=== PATIENT | male | born 1935 | race Hispanic/Latino ===

== ENCOUNTER → 2017-11-26 | Day surgery (SDC) | payer OTHER ==
[2017-11-24 13:58] LABS: BASOPHILS % 0.5 % (0.0-1.0); EOSINOPHILS # (AUTO) 0.3 (0.0-0.4); EOSINOPHILS % 3.3 % (0.0-6.0); HEMATOCRIT 41.4 % (38.2-49.6); HEMOGLOBIN 14.3 g/dL (14.0-18.0); LYMPHOCYTES # (AUTO) 3.1 (1.0-3.2); LYMPHOCYTES % 38.9 % (18.0-39.1); MEAN CORPUSCULAR HEMOGLOBIN 29.8 pg (28-32); MEAN CORPUSCULAR HGB CONC 34.5 g/dL (31-35); MEAN CORPUSCULAR VOLUME 86.3 fL (81-99); MONOCYTES # (AUTO) 0.7 (0.2-0.8); MONOCYTES % 9.1 % (4.4-11.3); NEUTROPHILS # (AUTO) 3.8 (2.1-6.9); NEUTROPHILS % 47.9 % (38.7-80.0); PLATELET COUNT 216 x10e3/uL (140-360); RED CELL DISTRIBUTION WIDTH 13.1 % (11.7-14.4)
[~2017-11-26] MED LIST: ARICEPT5 MG PO; FENTANYL CITRATE/PF 100MCG/2 ML INJ ONE; FLOMAX0.4 MG PO; LIDOCAINE HCL 2% LOCAL INJ 5 ML SDV VIAL INJ ONE; LISINOPRIL-HCT1 EACH PO; OMEPRAZOLE40 MG PO; PROPOFOL IV EMULSION 10 MG/ML 50 ML VIAL ONE
[2017-11-26 10:15] VITALS: BP 135/76
== END | disposition home or self-care (01) ==
LOC: OR 06:25
PROVIDERS: ATTEND Internal Medicine Gastroenterology
DX: R13.10 Dysphagia, unspecified (principal); K29.70 Gastritis, unspecified, without bleeding; K44.9 Diaphragmatic hernia without obstruction or gangrene; K31.89 Other diseases of stomach and duodenum; Z71.3 Dietary counseling and surveillance; E66.9 Obesity, unspecified; I25.2 Old myocardial infarction; I10 Essential (primary) hypertension; F32.9 Major depressive disorder, single episode, unspecified; F03.90 Unspecified dementia, unspecified severity, without behavioral disturbance, psychotic disturbance, mood disturbance, and anxiety; Z01.810 Encounter for preprocedural cardiovascular examination; Z01.812 Encounter for preprocedural laboratory examination; Z68.31 Body mass index [BMI] 31.0-31.9, adult; Z87.891 Personal history of nicotine dependence
CPT/HCPCS: 36415; 43239; 43249; 85025; 93005; J2001; 43450

== ENCOUNTER → 2018-10-29 | Day surgery (SDC) | payer OTHER ==
[2018-10-28 12:15] LABS: BASOPHILS % 0.5 % (0.0-1.0); EOSINOPHILS # (AUTO) 0.2 (0.0-0.4); EOSINOPHILS % 2.7 % (0.0-6.0); HEMATOCRIT 41.8 % (38.2-49.6); HEMOGLOBIN 14.5 g/dL (14.0-18.0); LYMPHOCYTES # (AUTO) 2.6 (1.0-3.2); LYMPHOCYTES % 30.3 % (18.0-39.1); MEAN CORPUSCULAR HEMOGLOBIN 29.9 pg (28-32); MEAN CORPUSCULAR HGB CONC 34.7 g/dL (31-35); MEAN CORPUSCULAR VOLUME 86.2 fL (81-99); MONOCYTES # (AUTO) 0.7 (0.2-0.8); MONOCYTES % 7.7 % (4.4-11.3); NEUTROPHILS # (AUTO) 5.1 (2.1-6.9); NEUTROPHILS % 58.3 % (38.7-80.0); PLATELET COUNT 220 x10e3/uL (140-360); RED BLOOD COUNT 4.85 x10e6/uL (4.3-5.7); RED CELL DISTRIBUTION WIDTH 13.1 % (11.7-14.4)
[2018-10-28 12:37] LABS: ANION GAP 12.9 mmol/L (8-16); BLOOD UREA NITROGEN 13 mg/dL (7-26); BUN/CREATININE RATIO 16 (6-25); CALCIUM 9.2 mg/dL (8.4-10.2); CARBON DIOXIDE 28 mmol/L (22-29); CHLORIDE 100 mmol/L (98-107); CREATININE, SERUM 0.83 mg/dL (0.72-1.25); EST GLOMERULAR FILTRATION RATE > 60 ML/MIN (60-); GLUCOSE 131 mg/dL (74-118); POTASSIUM 3.9 mmol/L (3.5-5.1); SODIUM 137 mmol/L (136-145)
--- NOTE | 2018-10-28 13:30 | Diagnostic Imaging Report ---
Chest, 2 views, 10/28/2018. History: Preop, interstem malfunction. Comparison: None available. Findings: There is poor inspiration. The cardiomediastinal silhouette and pulmonary vasculature are within normal limits. There is no focal consolidation or pleural effusion. Linear opacities are present at the right lung base. There are no acute osseous or soft tissue abnormalities. Impression: Right basilar atelectasis. Signed by: Ralf Campbell on 10/28/2018 1:27 PM
[~2018-10-29] MED LIST changes: +BUPIVACAINE 0.5%/EPI 30 ML SDV INJ ONE; +CLINDAMYCIN 300MG 50 ML IV ONE; +DEXAMETHASONE SOD PHOS INJ 4 MG/ML VIAL ONE; -FENTANYL CITRATE/PF 100MCG/2 ML INJ ONE; +GENTAMICIN 80MG/NS 100 ML 200 ML IV ONE; +LIDOCAINE 2%/ EPINEPHRINE 20ML MDV ONE; +MELOXICAM7.5 MG PO; +METFORMIN HCL500 MG PO; +NORCO 5-325 TA1 EACH PO; +ONDANSETRON HCL INJ 2MG/ML 2ML 2 MG/ML VIAL ONE; +PANTOPRAZOLE SO40 MG PO; +PIPER-TAZ 3.375 GM 50 ML ONE; +PROPOFOL IV EMULSION 10 MG/ML 20 ML VIAL ONE; -PROPOFOL IV EMULSION 10 MG/ML 50 ML VIAL ONE; +SEVOFLURANE INHAL SOLN 250 ML PEN BTL ONE; +SIMVASTATIN20 MG PO
--- OUTSIDE RECORDS SUMMARY | 2018-10-29 07:02 | XMS REPORT | Clinical Summary ---
Author Author JASON [facility] Address Unknown Phone Unavailable Care Team Providers Care Organ Recovery Coordinator Name Role Phone Jakob Larkin MD PCP Unavailable Allergies No Known Allergies Medications End Date Status Medication Sig Dispensed Refills Start Date Active HYDROcodone-acetaminophen Take 1 tablet 0 (NORCO 10-325) 10-325 mg by mouth per tablet every 6 (six) hours as needed for Pain. Active LACTULOSE (GENERLAC ORAL) Take by mouth 0 daily. Active cetirizine (ZYRTEC) 10 MG Take 10 mg by 0 tablet mouth as needed for Allergies. Active tamsulosin (FLOMAX) 0.4 Take 0.4 mg 0 mg Cp24 24 hr capsule by mouth daily. Active Problems Problem Noted Date Urethral stricture unspecified Urethral stricture unspecified Renal cyst H/O: CVA (cerebrovascular accident) GERD (gastroesophageal reflux disease) Diverticulosis S/P cataract extraction S/P anal fissurectomy Previous back surgery H/O hand surgery H/O prostate cancer Social History Date Tobacco Use Types Packs/Day Years Used Former Smoker 1 20 Comments: quit smoking about 22 years ago Alcohol Use Drinks/Week oz/Week Comments No Sex Assigned at Date Recorded Not on file Industry Job Start Date Occupation Not on file Not on file Not on file Travel End Travel History Travel Start No recent travel history available. Last Filed Vital Signs Not on file Plan of Treatment Not on file Implants Device Identifier Shelf Expiration Date Model / Serial / [place] [id number] / / Antenna [id number] - [id number] Pain MEDTRONIC: Implanted: Qty: 1 on 05/07/2016 by Mgmt/Stimu NEUROMODUL Fermin Blancas MD latrosemary [facility] 07/28/2017 3058 / [id number] / Stimulator Neuro Int 3058 - Urology Left: Back MEDTRONIC: [id number] NEUROMODUL Implanted: Qty: 1 on 05/07/2016 by Fermin Fontanez MD 04/19/2020 3889-28 / / [id number] Lead Kt Spine Pisces Z Quad 28 Urology Left: Back MEDTRONIC: 3889-28 - [id number] NEUROMODUL Implanted: Qty: 1 on 05/07/2016 by Fermin Fontanez MD Results Not on fileafter 10/28/2017 Insurance Payer Benefit Subscriber ID Type Phone Address Plan / Group TEXANPLUS TEXANPLUS xxxxxxxxx [facility]ICA[facility] MEDICAID xxxxxxxxx Medicaid OF [place]
--- OUTSIDE RECORDS SUMMARY | 2018-10-29 07:02 | XMS REPORT | Clinical Summary ---
Author Author [facility] [employer] Address Unknown Phone Unavailable Care Team Providers Care Ui Engineer Name Role Phone System, Provider Not In MD PCP Unavailable Allergies No Known Allergies Medications End Date Status Medication Sig Dispensed Refills Start Date Active lisinopril-hydrochlorothi TOME DAVID 1 azide TABLETA POR 8 (PRINZIDE,ZESTORETIC) V?A ORAL 20-12.5 mg per tablet TODOS LOS D? Active donepezil (ARICEPT) 5 MG TOME DAVID 0 tablet TABLETA TODOS 8 LOS D? Active tamsulosin (FLOMAX) 0.4 tamsulosin 0 mg capsule 0.4 mg capsule Active HYDROcodone-acetaminophen Take 1 tablet 0 (NORCO) 10-325 mg per by mouth 2 8 tablet (two) times a day. Active doxycycline (VIBRAMYCIN) TOME DAVID 0 100 MG capsule C?PSULA DOS 8 VECES AL D?A Active MYRBETRIQ 50 mg tablet TOME DAVID 3 extended release 24 hr TABLETA TODOS 8 LOS D? Active lactulose (CHRONULAC) 10 lactulose 10 0 gram/15 mL solution gram/15 mL oral solution 01/09/2018 Discontinued omeprazole (PriLOSEC) 20 TOME DAVID 1 MG capsule C?PSULA TODOS 8 LOS D? 02/08/2018 pantoprazole (PROTONIX) Take 1 tablet 30 tablet 0 20 MG EC tablet (20 mg total) 8 by mouth daily for 30 days. 02/08/2018 docusate sodium (COLACE) Take 1 60 capsule 0 100 MG capsule capsule (100 8 mg total) by mouth every 12 (twelve) hours for 30 days. 02/08/2018 polyethylene glycol Take 17 g by 30 packet 0 (MIRALAX) 17 gram packet mouth daily 8 for 30 days. Active Problems Not on file Encounters Care Team Description Date Type Specialty Indio Loving MD Left upper quadrant pain (Primary Dx); Constipation, unspecified constipation type; Acute gastritis without hemorrhage, unspecified gastritis type 01/09/2018 Emergency Emergency Medicine after 10/28/2017 Social History Date Tobacco Use Types Packs/Day Years Used Former Smoker Smokeless Tobacco: Former User Alcohol Use Drinks/Week oz/Week Comments No Sex Assigned at Date Recorded Not on file Industry Job Start Date Occupation Not on file Not on file Not on file Travel End Travel History Travel Start No recent travel history available. Last Filed Vital Signs Time Taken Vital Sign Reading 01/09/2018 6:15 PM CDT Blood Pressure 134/61 01/09/2018 6:15 PM CDT Pulse 78 01/09/2018 2:32 PM CDT Temperature 36.4 C (97.5 F) 01/09/2018 6:15 PM CDT Respiratory Rate 18 01/09/2018 6:15 PM CDT Oxygen Saturation 96% - Inhaled Oxygen - Concentration - Weight - 01/09/2018 2:30 PM CDT Height 165.1 cm (5' 5") - Body Mass Index - Plan of Treatment Health Maintenance Due Date Last Done Comments SHINGLES VACCINES (#1) 1984 65+ PNEUMOCOCCAL VACCINE 06/25/1999 05/22/2016 (2 of 2 - PPSV23) INFLUENZA VACCINE 11/04/2018 11/11/2016, 05/22/2016, 02/16/2015, Additional history exists Procedures Comments Procedure Name Priority Date/Time Associated Diagnosis LACTIC ACID LEVEL, SEPSIS STAT 01/09/2018 - NOW AND REPEAT 2X EVERY 4:05 PM CDT 3 HOURS ESTIMATED GFR STAT 01/09/2018 4:05 PM CDT LIPASE LEVEL STAT 01/09/2018 4:05 PM CDT COMPREHENSIVE METABOLIC STAT 01/09/2018 PANEL 4:05 PM CDT HC COMPLETE BLD COUNT STAT 01/09/2018 W/AUTO DIFF 4:05 PM CDT URINALYSIS SCREEN AND STAT 01/09/2018 MICROSCOPY, WITH REFLEX 3:51 PM CDT TO CULTURE URINE CULTURE STAT 01/09/2018 3:[address] ABDOMEN PELVIS WO STAT 01/09/2018 CONTRAST 3:50 PM CDT after 10/28/2017 Results * Estimated GFR (01/09/2018 4:05 PM CDT) Pathologist [facility] Estimated GFR 78 mL/min/1.73 m2 [facility] Comment: OF PATHOLOGY CatergoryUnitsInte AND GENOMIC rpretation MEDICINE G1 >=90 Normal or high G2 60-89Mildly decreased [id number] Mildly to moderately decreased [id number] Moderately to severely decreased G4 15-29Severely decreased G5 <15Kidney failure The eGFR was calculated using the Chronic Kidney Disease Epidemiology Collaboration (CKD-EPI) equation. Interpretation is based on recommendations of the National Kidney Foundation-Kidney Disease Outcomes Quality Initiative (NKF-KDOQI) published in 2014. Specimen Plasma specimen Performing Organization Address City/[facility]/[place] [address] PATHOLOGY AND [facility] * Lactic acid level, SEPSIS - Now and repeat 2x every 3 hours (01/09/2018 4:05 PM CDT) [facility] Lactic acid 1.1 0.5 - 2.2 mmol/L [facility] OF PATHOLOGY AND GENOMIC [facility] Specimen Blood Performing Organization Address City/[facility]/Zipcode Phone Number [address] [place] [address] PATHOLOGY AND GENOMIC MEDICINE * CBC with platelet and differential (01/09/2018 4:05 PM CDT) [facility] WBC 12.4 (H) 4.2 - 11.0 k/uL [facility] OF PATHOLOGY AND GENOMIC MEDICINE RBC 4.81 4.04 - 5.86 m/uL [facility]OLOGY AND GENOMIC MEDICINE HGB 13.9 13.0 - 17.3 g/dL [facility] OF PATHOLOGY AND GENOMIC MEDICINE HCT 42.2 34.0 - 45.0 % [facility] OF PATHOLOGY AND GENOMIC MEDICINE MCV 87.7 80.0 - 98.0 fL [facility] OF PATHOLOGY AND GENOMIC MEDICINE MCH 28.9 27.0 - 34.0 pg [facility] OF PATHOLOGY AND GENOMIC MEDICINE MCHC 32.9 31.5 - 36.5 g/dL [facility] OF PATHOLOGY AND GENOMIC MEDICINE RDW - SD 42.1 37.0 - 51.0 fL [facility]OLOGY AND GENOMIC MEDICINE MPV 10.9 (H) 7.4 - 10.4 fL [facility]OLOGY AND GENOMIC MEDICINE Platelet count 207 150 - 400 k/uL [facility]OLOGY AND GENOMIC MEDICINE Nucleated RBC 0.00 /100 WBC [facility] OF PATHOLOGY AND GENOMIC MEDICINE Neutrophils 63.8 36.0 - 66.0 % [facility] OF PATHOLOGY AND GENOMIC MEDICINE Lymphocytes 22.4 (L) 24.0 - 44.0 % [facility] OF [facility]OLOGY AND GENOMIC MEDICINE Monocytes 10.3 (H) 0.0 - 6.0 % [facility] OF PATHOLOGY AND GENOMIC MEDICINE Eosinophils 2.7 0.0 - 6.0 % [facility] OF PATHOLOGY AND GENOMIC MEDICINE Basophils 0.3 0.0 - 1.2 % [facility] OF PATHOLOGY AND GENOMIC MEDICINE Immature 0.5 0.0 - 1.0 % [facility] granulocytes OF PATHOLOGY AND GENOMIC MEDICINE Specimen Blood Performing Organization Address City/[facility]/[place] [address] PATHOLOGY AND [facility] * Lipase level (01/09/2018 4:05 PM CDT) Lipase 69 (H) 13 - 60 U/L [facility] PATHOLOGY AND GENOMIC MEDICINE Specimen Plasma specimen Performing Organization Address City/[facility]/[place] [address] PATHOLOGY [facility] * Comprehensive metabolic panel (01/09/2018 4:05 PM CDT) Sodium 135 135 - 150 mEq/L [facility] OF PATHOLOGY AND GENOMIC MEDICINE Potassium 4.2 3.5 - 5.0 mEq/L [facility] OF PATHOLOGY AND GENOMIC MEDICINE Chloride 99 98 - 112 mEq/L [facility] OF PATHOLOGY AND GENOMIC MEDICINE CO2 26 24 - 31 mmol/L [facility] OF PATHOLOGY AND GENOMIC MEDICINE Anion gap 10@ANIO 7 - 15 mEq/L [facility] OF PATHOLOGY AND GENOMIC MEDICINE BUN 17 7 - 18 mg/dL [facility] OF PATHOLOGY AND GENOMIC MEDICINE Creatinine 0.90 0.70 - 1.20 mg/dL [facility] OF PATHOLOGY AND GENOMIC MEDICINE Glucose 128 (H) 65 - 100 mg/dL [facility] OF PATHOLOGY AND GENOMIC MEDICINE Calcium 8.8 8.8 - 10.2 mg/dL [facility] OF PATHOLOGY AND GENOMIC MEDICINE Protein 7.2 6.3 - 8.3 g/dL [facility] OF PATHOLOGY AND GENOMIC MEDICINE Albumin 3.6 3.5 - 5.0 g/dL [facility] OF PATHOLOGY AND GENOMIC MEDICINE A/G ratio 1.0 0.7 - 3.8 [facility] OF PATHOLOGY AND GENOMIC MEDICINE Alkaline 50 0 - 129 U/L [facility] phosphatase OF PATHOLOGY AND GENOMIC MEDICINE AST 30 10 - 50 U/L [facility] OF PATHOLOGY AND GENOMIC MEDICINE ALT 44 5 - 50 U/L [facility] OF PATHOLOGY AND GENOMIC MEDICINE Total bilirubin 0.4 0.2 - 1.2 mg/dL [facility] OF PATHOLOGY AND GENOMIC MEDICINE Specimen Plasma specimen Performing Organization Address City/State/Zipcode Phone Number [place] [phone] [place] [address] PATHOLOGY AND GENOMIC MEDICINE * Urinalysis screen and microscopy, with reflex to culture (01/09/2018 3:51 PM CDT) Specimen site Clean catch [facility] OF [facility]OLOGY AND GENOMIC MEDICINE Color, UA Yellow [facility] OF PATHOLOGY AND GENOMIC MEDICINE Appearance, UA Clear [facility] OF PATHOLOGY AND GENOMIC MEDICINE Specific 1.018 1.001 - 1.035 [facility] gravity, UA OF PATHOLOGY AND GENOMIC MEDICINE pH, UA 5.0 5.0 - 8.5 [facility] OF PATHOLOGY AND GENOMIC MEDICINE Protein, UA Negative Negative [facility] OF PATHOLOGY AND GENOMIC MEDICINE Glucose, UA Negative Negative [facility] OF PATHOLOGY AND GENOMIC MEDICINE Ketones, UA Negative Negative [facility] OF PATHOLOGY AND GENOMIC MEDICINE Bilirubin, UA Negative Negative [facility] OF PATHOLOGY AND GENOMIC MEDICINE Blood, UA Negative Negative [facility] OF PATHOLOGY AND GENOMIC MEDICINE Nitrite, UA Negative Negative [facility] OF PATHOLOGY AND GENOMIC MEDICINE Urobilinogen, Negative <2.0 [facility] UA OF PATHOLOGY AND GENOMIC MEDICINE Leukocyte Negative Negative [facility] esterase, UA OF PATHOLOGY AND GENOMIC MEDICINE WBC, UA None seen 0 - 1 /HPF [facility] OF PATHOLOGY AND GENOMIC MEDICINE RBC, UA None seen 0 - 5 /HPF [facility] OF PATHOLOGY AND GENOMIC MEDICINE Bacteria, UA None seen None seen [facility] OF PATHOLOGY AND GENOMIC MEDICINE Yeast, UA None seen [facility] OF PATHOLOGY AND GENOMIC MEDICINE Yeast with None seen [facility] pseudohyphae, OF PATHOLOGY UA AND GENOMIC MEDICINE Specimen Urine Performing Organization Address City/State/Zipcode Phone Number [facility] [address] [place] [address] PATHOLOGY AND GENOMIC MEDICINE * Urine culture (01/09/2018 3:51 PM CDT) Urine culture SEE COMMENTComment: [facility] Bacteriuria screen negative. OF PATHOLOGY AND GENOMIC MEDICINE Specimen Performing Organization Address City/State/Zipcode Phone Number [facility] [address] [place] [address] PATHOLOGY AND GENOMIC MEDICINE * CT Abdomen Pelvis Wo Contrast (01/09/2018 3:50 PM CDT) Specimen Narrative Performed At EXAMINATION:CT ABDOMEN PELVIS WO CONTRAST HM [facility] CLINICAL HISTORY:opain TECHNIQUE: Multiple axial images of the abdomen and pelvis were obtained without intravenous administration of iodinated contrast. Sagittal and coronal computerized reformatted images were also obtained. The lack of intravenous contrast reduces the sensitivity of detecting solid organ disease. Enteric contrast was not administered. CT imaging was performed with iterative reconstruction technique and/or automated exposure control reduced radiation dose. COMPARISON:June 25, 2016 FINDINGS: Hazy opacification of the lung bases with interstitial prominence suggests some degree of pulmonary congestion. Abdomen: 1. Diffuse hypodensity throughout the liver is compatible fatty infiltration. Limited evaluation of the unenhanced liver, spleen, adrenal glands, and pancreas is otherwise grossly unremarkable, though not considered to diagnostic standards given absence of IV contrast. 2. Hypodensities extending from each kidney are most, attributed to cysts, though are completely characterized by noncontrast technique. A 1.0 cm exophytic isodense extending from the posterior lateral cortex of the left kidney may represent a complex left renal cyst, though is unchanged. 3. Cholecystectomy. The pancreatic and biliary ducts are not dilated. The abdominal aorta is normal caliber. 3. The bowel is not dilated. A small amount of stool is present throughout the colon. Diverticulosis is present throughout the colon without gross evidence of diverticulitis. 4. A very small umbilical hernia contains a short segment of small bowel, though there is no evidence of obstruction. Pelvis: 1. Therapeutic implants are present within the prostate. The unenhanced bladder is unremarkable. 2. There is no acute osseous pathology. IMPRESSION: 1. Cholecystectomy. 2. Hepatic steatosis. 3. Renal cysts. 4. Diverticulosis. 5. Otherwise as above with no acute findings. [id number] Procedure Note Hm Interface, Radiology Results Incoming - 01/09/2018 3:58 PM CDT EXAMINATION: CT ABDOMEN PELVIS WO CONTRAST CLINICAL HISTORY: opain TECHNIQUE: Multiple axial images of the abdomen and pelvis were obtained without intravenous administration of iodinated contrast. Sagittal and coronal computerized reformatted images were also obtained. The lack of intravenous contrast reduces the sensitivity of detecting solid organ disease. Enteric contrast was not administered. CT imaging was performed with iterative reconstruction technique and/or automated exposure control reduced radiation dose. COMPARISON: June 25, 2016 FINDINGS: Hazy opacification of the lung bases with interstitial prominence suggests some degree of pulmonary congestion. Abdomen: 1. Diffuse hypodensity throughout the liver is compatible fatty infiltration. Limited evaluation of the unenhanced liver, spleen, adrenal glands, and pancreas is otherwise grossly unremarkable, though not considered to diagnostic standards given absence of IV contrast. 2. Hypodensities extending from each kidney are most, attributed to cysts, though are completely characterized by noncontrast technique. A 1.0 cm exophytic isodense extending from the posterior lateral cortex of the left kidney may represent a complex left renal cyst, though is unchanged. 3. Cholecystectomy. The pancreatic and biliary ducts are not dilated. The abdominal aorta is normal caliber. 3. The bowel is not dilated. A small amount of stool is present throughout the colon. Diverticulosis is present throughout the colon without gross evidence of diverticulitis. 4. A very small umbilical hernia contains a short segment of small bowel, though there is no evidence of obstruction. Pelvis: 1. Therapeutic implants are present within the prostate. The unenhanced bladder is unremarkable. 2. There is no acute osseous pathology. IMPRESSION: 1. Cholecystectomy. 2. Hepatic steatosis. 3. Renal cysts. 4. Diverticulosis. 5. Otherwise as above with no acute findings. [id number] Performing Organization Address City/State/Zipcode Phone Number [facility] [address] [place] [address] after 10/28/2017 Insurance Type Payer Benefit Subscriber ID Effective Phone Address Plan / Dates Group HMO AMERIGROUP AMERIGROUP xxxxxxxxx 2016-P STAR+PLUS resent DIANA HMO TEXANPLUS TEXANPLUS xxxxxxxxx 2017-P MCR resent Advance Directives Patient has advance care planning documents on file. For more information, boone e contact: Jon Collins [address] [place] [address]
[2018-10-29 10:25] VITALS: BP 120/69
--- NOTE | 2018-12-30 06:32 | Operative Report ---
DATE OF PROCEDURE: 12/30/2018 SURGEON: Fermin Blancas MD PREOPERATIVE DIAGNOSIS: InterStim in situ. POSTOPERATIVE DIAGNOSES: 1. InterStim in situ. 2. Skin lesion of the trunk. OPERATIONS PERFORMED: 1. Explantation of InterStim lead array. 2. Explantation of InterStim neurostimulator. 3. Excision of skin lesion approximately 6 mm in size. 4. Complex closure of 2 cm x 1 cm skin defect caused by the excision of skin lesion. ANESTHESIA: General. COMPLICATIONS: None. CLINICAL SUMMARY: Eliot Caldera is an 83-year-old man with InterStim and he desires it be removed. He is aware of the risks of bleeding, infection, injury to adjacent structures, need for additional procedures and elected to proceed. OPERATIVE PROCEDURE IN DETAIL: Informed consent was verified. Eliot Caldera was properly identified and taken to the operating room. Anesthesia was uneventfully begun. He was carefully and gently repositioned on the operating table with all pressure points carefully well padded. His back was prepared and draped in usual sterile fashion. There was a 6 mm skin lesion which not seen necessarily benign. We decided that we would excise this lesion as well as removing the InterStim. An elliptical incision was made around the 6 mm lesion to give ample margin. We then excised with full thickness of the skin. Cautery was utilized to achieve hemostasis. A 2 cm x 1 cm skin defect was resolved. We then proceeded with explantation of the InterStim, two incisions were made for explantation of the InterStim. Once the lead was isolated, it was grasped and gently removed. The InterStim neurogenerator was also removed and the pocket site ablated. Copious irrigation was performed of all incision sites. Local anesthesia with epinephrine was utilized to infiltrate circumferentially around all the incisions. All the incisions were then approximated in layers utilizing absorbable sutures. Sterile dressings were applied of Mastisol, Steri-Strips, and Bioclusive dressings and the patient was uneventfully reversed from anesthesia and taken to recovery room in stable condition. There were no complications to the procedure. He tolerated the procedure well. Explicit postop instructions were given for the patient in the office. Fermin Blancas MD [place]/[facility] /[id number] cc: Jakob Larkin MD
== END | disposition home or self-care (01) ==
LOC: OR 06:57
PROVIDERS: ATTEND Urology
DX: T85.113A Breakdown (mechanical) of implanted electronic neurostimulator, generator, initial encounter (principal); K21.9 Gastro-esophageal reflux disease without esophagitis; C61 Malignant neoplasm of prostate; N40.1 Benign prostatic hyperplasia with lower urinary tract symptoms; R39.14 Feeling of incomplete bladder emptying; N39.0 Urinary tract infection, site not specified; N28.1 Cyst of kidney, acquired; N35.919 Unspecified urethral stricture, male, unspecified site; K42.9 Umbilical hernia without obstruction or gangrene; N32.81 Overactive bladder; R35.1 Nocturia; N39.41 Urge incontinence; E66.9 Obesity, unspecified; R31.0 Gross hematuria; N52.9 Male erectile dysfunction, unspecified; Z68.31 Body mass index [BMI] 31.0-31.9, adult; Z87.891 Personal history of nicotine dependence; Z01.811 Encounter for preprocedural respiratory examination; Z01.810 Encounter for preprocedural cardiovascular examination; Z01.812 Encounter for preprocedural laboratory examination; Z86.73 Personal history of transient ischemic attack (TIA), and cerebral infarction without residual deficits; L98.9 Disorder of the skin and subcutaneous tissue, unspecified
CPT/HCPCS: 11403; 13100; 36415; 64585; 64595; 71046; 80048; 85025; 88300; 88305; 93005; J1100; J1580; J2001 ×2; J2405; J2543; J2704; 88304